=== PATIENT | female | born 1995 | race Caucasian/White ===

== ENCOUNTER 2020-06-26 08:00 | Inpatient (IN) ==
[2020-06-26] MEDS ORDERED: Azithromycin 500 MG in 0.9 % Sodium Chloride 250 ML IVPB ONE (08:10)
[2020-06-26] MEDS ORDERED: Ondansetron 4 MG/2 ML VIAL IVP PRN ×2 (08:10→12:08)
[2020-06-26] MEDS ORDERED: Famotidine 20 MG/2 ML VIAL IVP PRN (08:10)
[2020-06-26] MEDS ORDERED: *HR* FentaNYL (PF) 100 MCG/2 ML VIAL IVP PRN (08:10)
[2020-06-26] MEDS ORDERED: Naloxone 0.4 MG/ML INJ IVP PRN ×2 (08:10→12:08)
[2020-06-26] MEDS ORDERED: Metoclopramide 10 MG/2 ML VIAL IVP PRN (08:10)
[2020-06-26] MEDS ORDERED: miSOPROStoL 25 MCG TABLET VG PRN (08:15)
[2020-06-26] MEDS ORDERED: Oxytocin 20 units/ LR 1000 mL 20 UNIT/1,000 ML BAG IVC SCH (09:30)
[2020-06-26] MEDS: Ringers Solution, Lactated 1,000 ML IVC SCH ×3 (09:45→16:01)
[2020-06-26 09:57] LABS: Basophils % 0.4 %; Eosinophils # 0.1 K/mcL (0.0-0.6); Eosinophils % 1.4 %; Hematocrit 37.5 % (35.3-44.9); Hemoglobin 12.7 g/dL (11.5-15.4); Immature Granulocytes % 0.7 % (0-4); Lymphocytes # 1.8 K/mcL (0.6-4.6); Lymphocytes % 17.8 %; Mean Corpuscular HGB Conc 33.9 g/dL (31.6-35.5); Mean Corpuscular Hemoglobin 31.8 pg (28.0-33.3); Mean Corpuscular Volume 93.8 fL (83.0-100.0); Mean Platelet Volume 12.2 fL (9.4-12.4); Monocytes # 1.1 K/mcL (0.0-1.3); Monocytes % 11.1 %; Neutrophils # 6.9 K/mcL (1.6-8.9); Platelet Count 127 K/mcL (140-400); Red Cell Distribution Width 12.4 % (11.5-14.5); Segmented Neutrophils % 68.6 %
[2020-06-26 10:05] LABS: Amphetamine Screen,Urine Negative ng/mL (Cutoff=1000); Barbiturate Screen,Urine Negative ng/mL (Cutoff=200); Benzodiazepines Screen,Urine Negative ng/mL (Cutoff=200); Cannabinoid Screen,Urine Negative ng/mL (Cutoff = 50); Cocaine Screen,Urine Negative ng/mL (Cutoff= 300); Creatinine,Urine 150 mg/dL; Opiate Screen,Urine Negative ng/mL (Cutoff=300); Phencyclidine Screen,Urine Negative ng/mL (Cutoff=25); Protein/Creatinine Ratio,Urine 0.15 mg/mg (0.00-0.20)
[2020-06-26 10:16] LABS: Alanine Aminotransferase 54 Units/L (7-52); Aspartate Amino Transferase 29 Units/L (13-39); BUN/Creatinine Ratio 17 (6-26); Blood Urea Nitrogen 13 mg/dL (6-20); Lactate Dehydrogenase 141 Units/L (140-271); Uric Acid 8.1 mg/dL (2.3-7.6); eGFR For African Americans > 60 (> 60); eGFR For Non-African Americans > 60 (> 60)
[2020-06-26] MEDS ORDERED: *HR* FentaNYL (PF) 100 MCG/2 ML VIAL EP ONE (12:08)
[2020-06-26] MEDS ORDERED: Ropivacaine/PF 0.2% 20 ML VIAL EP ONE (12:08)
[2020-06-26] MEDS ORDERED: EPHEDrine 50 MG/ML VIAL IVP PRN (12:08)
[2020-06-26] MEDS ORDERED: Epidural Premix (fent/bupiv) 110 ML EP SCH (12:15)
[2020-06-26] MEDS ORDERED: Ropivacaine/PF 0.2% 20 ML VIAL ONE ×2 (12:19→21:09)
[2020-06-26] MEDS ORDERED: Magnesium Sulf 20 gm/SW 500mL 20 GM/500 ML IV.SOLN IVC SCH (18:45)
[2020-06-26] MEDS ORDERED: Calcium Gluconate 1,000 MG/10 ML VIAL IVP PRN (18:49)
[2020-06-27] MEDS ORDERED: Lidocaine 1% 20 ML MDV ONE (02:25)
[2020-06-27 03:33] LABS: Hematocrit 36.8 % (35.3-44.9); Hemoglobin 12.5 g/dL (11.5-15.4); Mean Corpuscular Hemoglobin 32.5 pg (28.0-33.3); Mean Corpuscular Volume 95.6 fL (83.0-100.0); Mean Platelet Volume 12.1 fL (9.4-12.4); Platelet Count 137 K/mcL (140-400); Red Blood Count 3.85 M/mcL (3.82-4.97); Red Cell Distribution Width 12.5 % (11.5-14.5)
[2020-06-27 03:37] LABS: White Blood Count 24.2 K/mcL (4.3-11.1)
[2020-06-27 03:48] LABS: Alanine Aminotransferase 44 Units/L (7-52); Aspartate Amino Transferase 30 Units/L (13-39); Lactate Dehydrogenase 207 Units/L (140-271); Magnesium 5.3 mg/dL (1.6-2.6); Uric Acid 8.4 mg/dL (2.3-7.6); eGFR For African Americans > 60 (> 60); eGFR For Non-African Americans > 60 (> 60)
[2020-06-27 04:01] LABS: Lymphocytes # 1.9 K/mcL (0.6-4.6); Monocytes # 1.9 K/mcL (0.0-1.3); Neutrophils # 20.3 K/mcL (1.6-8.9)
[2020-06-27 04:02] LABS: Platelet Estimate Slight Decrease (Normal)
[2020-06-27] MEDS ORDERED: Ibuprofen 600 MG TABLET PO ONE (04:34)
[2020-06-27] MEDS ORDERED: Calcium Gluconate 1,000 MG/10 ML VIAL IVP PRN (05:13)
[2020-06-27] MEDS ORDERED: Benzocaine/Menthol 56 GM AEROSOL SPRAY TP PRN (05:13)
[2020-06-27] MEDS ORDERED: Acetaminophen 325 MG TABLET PO PRN (05:13)
[2020-06-27] MEDS ORDERED: Lanolin 7 G OINT...G. TP PRN (05:13)
[2020-06-27] MEDS: *HR* HYDROcodone/Acet 5/325 mg TABLET PO PRN ×2 (05:37→14:35)
[2020-06-27] MEDS: Magnesium Sulf 20 gm/SW 500mL 20 GM/500 ML IV.SOLN IVC SCH ×2 (05:37→17:22)
[2020-06-27] MEDS: Oxytocin 20 units/ LR 1000 mL 20 UNIT/1,000 ML BAG IVC SCH ×2 (05:38→17:22)
[2020-06-27] MEDS: Prenatal Vit/FA 1 EACH TABLET PO SCH (08:25)
[2020-06-27] MEDS: Ibuprofen 600 MG TABLET PO PRN ×2 (13:03→19:31)
[2020-06-28] MEDS: Ibuprofen 600 MG TABLET PO PRN (05:29)
[2020-06-28 05:49] LABS: Basophils # 0.1 K/mcL (0.0-0.2); Basophils % 0.3 %; Eosinophils # 0.1 K/mcL (0.0-0.6); Eosinophils % 0.3 %; Hematocrit 31.3 % (35.3-44.9); Hemoglobin 10.4 g/dL (11.5-15.4); Immature Granulocytes % 0.6 % (0-4); Lymphocytes # 1.9 K/mcL (0.6-4.6); Lymphocytes % 10.8 %; Mean Corpuscular HGB Conc 33.2 g/dL (31.6-35.5); Mean Corpuscular Hemoglobin 31.9 pg (28.0-33.3); Mean Platelet Volume 11.5 fL (9.4-12.4); Monocytes # 1.3 K/mcL (0.0-1.3); Monocytes % 7.3 %; Neutrophils # 14.5 K/mcL (1.6-8.9); Platelet Count 153 K/mcL (140-400); Red Blood Count 3.26 M/mcL (3.82-4.97); Red Cell Distribution Width 12.9 % (11.5-14.5); Segmented Neutrophils % 80.7 %
[2020-06-28 06:09] LABS: Alanine Aminotransferase 29 Units/L (7-52); BUN/Creatinine Ratio 11 (6-26); Blood Urea Nitrogen 8 mg/dL (6-20); Lactate Dehydrogenase 243 Units/L (140-271); Uric Acid 7.9 mg/dL (2.3-7.6); eGFR For African Americans > 60 (> 60); eGFR For Non-African Americans > 60 (> 60)
[2020-06-28] MEDS: Prenatal Vit/FA 1 EACH TABLET PO SCH (08:59)
[2020-06-28 17:14] VITALS: BP 137/93
== END 2020-06-28 17:50 | disposition home or self-care (01) | DRG 560 ==
LOC: 1NENULAB 08:02 → 1NENUOBS 06-27 05:16
PROVIDERS: ADMIT Obstetrics & Gynecology; ATTEND Obstetrics & Gynecology